=== PATIENT | male | born 1950 | race Caucasian/White ===

== ENCOUNTER 2017-05-15 11:32 | Emergency (ER) | payer MEDICARE, OTHER ==
[~2017-05-15] VITALS: Ht 167.6 cm; Wt 67.1 kg
[~2017-05-15 11:32] MED LIST: ASPI81TA31 PO; ATEN25TA PO; Acetaminophen PO; OMEP20TA5 PO; TERAZOSIN PO; VALS1TAB6 PO
--- NOTE | 2017-05-15 12:03 | NUR ---
PT IS IN ROOM #2A. DR BRONSON EVALUATED THE PT.
[2017-05-15] MEDS ORDERED: IV NORMAL SALINE 1000 ML BAG IV ONE (12:15)
[2017-05-15 12:54] LABS: EOSINOPHILS # (AUTO) 0.1 K/uL (0.0-0.7); EOSINOPHILS % (AUTO) 1.4 % (0.0-7.0); HEMATOCRIT 23.4 % (36.7-47.1); HEMOGLOBIN 7.8 g/dL (12.5-16.3); LYMPHOCYTES # (AUTO) 0.6 K/uL (20.0-40.0); LYMPHOCYTES % (AUTO) 16.6 % (20.5-51.5); MEAN CORPUSCULAR HEMOGLOBIN 32.7 uug (23.8-33.4); MEAN CORPUSCULAR HGB CONC 33 g/dL (32.5-36.3); MEAN CORPUSCULAR VOLUME 97.7 fL (73.0-96.2); MONOCYTES # (AUTO) 0.3 K/uL (2.0-10.0); MONOCYTES % (AUTO) 8.5 % (0.0-11.0); NEUTROPHILS # (AUTO) 2.7 K/uL (1.8-8.9); NEUTROPHILS % (AUTO) 72.5 % (38.5-71.5); PLATELET COUNT (AUTO) 130 K/uL (152-348); WHITE BLOOD COUNT (AUTO) 3.7 K/uL (3.6-10.2)
[2017-05-15 12:59] LABS: RED BLOOD CELL COUNT(AUTO) 2.39 MIL/uL (4.06-5.63)
[2017-05-15 13:07] LABS: CREATININE 2.1 mg/dL (0.6-1.3); POTASSIUM 4.1 mmol/L (3.5-5.1)
[2017-05-15 13:14] LABS: BILIRUBIN,DIRECT 0.2 mg/dL (0.0-0.2); BILIRUBIN,TOTAL 0.7 mg/dL (0.2-1.0); TOTAL PROTEIN, SERUM 7.5 g/dL (6.4-8.2)
--- NOTE | 2017-05-15 16:28 | NUR ---
PT WAS D/C TO HOME BY DR BRONSON. D/C INSTRUCTIONS GIVEN TO THE PT.
[2017-05-15 16:29] VITALS: BP 139/71
== END 2017-05-15 16:30 | disposition home or self-care (01) ==
LOC: ER 11:32
DX: R13.10 Dysphagia, unspecified (principal); D64.9 Anemia, unspecified; N28.9 Disorder of kidney and ureter, unspecified; E78.5 Hyperlipidemia, unspecified; N40.0 Benign prostatic hyperplasia without lower urinary tract symptoms; Z79.82 Long term (current) use of aspirin; Z85.819 Personal history of malignant neoplasm of unspecified site of lip, oral cavity, and pharynx; Z98.890 Other specified postprocedural states; Z87.891 Personal history of nicotine dependence
CPT/HCPCS: 36415; 70360; 71010; 80048; 80076; 85025; 93005; 96360; 96361; 99285; A4663